=== PATIENT | male | born 1970 | race Two or more races ===

== ENCOUNTER 2021-08-27 16:03 | Inpatient (IN) | payer MEDICAID, OTHER ==
[~2021-08-27] VITALS: Ht 170.2 cm; Wt 85.4 kg
[2021-08-27] MEDS ORDERED: LABETALOL HCL 5 MG/ML 4ML SYRINGE IV ONE (16:30)
[2021-08-27] MEDS ORDERED: ASPirin 81 mg TAB PO ONE ×2 (16:30→20:30)
[2021-08-27] MEDS ORDERED: LORazepam 2MG/ML-1ML VIAL IV ONE (16:30)
[2021-08-27] MEDS ORDERED: ONDANSETRON HCL 4 MG/2 ML VIAL IV PRN (17:15)
[2021-08-27] MEDS ORDERED: MORPHINE SULFATE INJECTION 2 MG/ML SYRG IV PRN ×3 (17:15→19:30)
[2021-08-27] MEDS ORDERED: METOPROLOL SUCCINATE XL 50 MG TAB PO ONE (17:15)
[2021-08-27] MEDS ORDERED: BENAZEPRIL HCL 10 MG TAB PO ONE (17:15)
[2021-08-27] MEDS ORDERED: ATORVASTATIN 20 MG TAB PO ONE (17:15)
[2021-08-27] MEDS ORDERED: NITROGLYCERIN 0.4 MG SL TAB SL PRN (17:15)
[2021-08-27] MEDS ORDERED: DEXTROSE (50%) 50ML SYRG IV PRN (17:15)
[2021-08-27 17:23] LABS: Basophils # (auto) 0.1 10 ^3/uL (0-0.2); Eosinophils # (auto) 0.3 10 ^3/uL (0-0.8); Mean Corpuscular Hemoglobin 26.5 pg (28.0-32.0); Mean Corpuscular Hgb Conc. 33.2 g/dL (32.0-36.0); Mean Corpuscular Volume 79.7 fL (80.0-100.0); Neutrophils # (auto) 5.9 10 ^3/uL (1.6-8.6); Red Cell Distribution Width 13.7 % (11.8-14.3); White Blood Cell 8.6 10^3/uL (4.4-10.8)
[2021-08-27 17:25] LABS: Hematocrit 35.7 % (41.0-53.0); Hemoglobin 11.9 g/dL (13.5-17.5); Lymphocytes # (auto) 1.9 10 ^3/uL (0.4-5.4); Lymphocytes % (auto) 21.4 % (10.0-50.0); Monocytes # (auto) 0.6 10 ^3/uL (0-1.3); Monocytes % (auto) 6.5 % (0.0-12.0); Neutrophils % (auto) 68.1 % (37.0-80.0); Red Blood Cells 4.48 10^6/uL (4.5-5.90)
[2021-08-27 17:31] LABS: Urine Bacteria NONE SEEN /hpf (None Seen); Urine Blood Negative /uL (Negative); Urine Specific Gravity 1.008 (1.001-1.035); Urine WBC <1 /hpf (0 - 3)
[2021-08-27 17:37] LABS: INR 1.04 (0.9-1.15); Partial Thromboplastin Time 30.7 sec (23.6-33.0)
[2021-08-27 17:40] LABS: Albumin 4.1 g/dL (3.4-5.0); Calcium 9.5 mg/dL (8.5-10.1); Potassium 4.2 mmol/L (3.5-5.1)
[2021-08-27 17:44] LABS: Bilirubin, Total 0.4 mg/dL (0.2-1.0)
[2021-08-27] MEDS ORDERED: METOCLOPRAMIDE HCL 5MG/ml INJ 2ml VIAL IV PRN (19:30)
[2021-08-27] MEDS ORDERED: FAMOTIDINE (10MG/ML) 2ML VL IV ONE (19:30)
[2021-08-27] MEDS ORDERED: LORazepam 0.5 MG TAB PO PRN (19:30)
[2021-08-27] MEDS ORDERED: SODIUM CHLORIDE 0.9% 1,000 ML IV SCH (19:30)
[2021-08-27] MEDS ORDERED: NIFEdipine ER 30 MG TAB PO ONE (19:30)
[2021-08-27] MEDS ORDERED: LACTULOSE 20Gm/30ML SOLN PO PRN (19:30)
[2021-08-27] MEDS ORDERED: HYDROcodone-ACET 5/325MG TAB PO PRN (19:30)
[2021-08-27] MEDS ORDERED: DOCUSATE SOD 100 MG CAP PO PRN (19:30)
[2021-08-27] MEDS ORDERED: ACETAMINOPHEN 325 MG TAB PO PRN (19:30)
[2021-08-27] MEDS ORDERED: HYDROcodone-ACET 5/325MG TAB PO ONE (19:30)
[2021-08-27 19:59] LABS: Magnesium 2.4 mg/dL (1.6-2.6); Phosphorus 4.7 mg/dL (2.5-4.90)
[2021-08-27] MEDS ORDERED: LIDOCAINE 2%HCL (LOCAL ANESTH.) INJ 10ml MDV ONE (20:44)
[2021-08-27] MEDS: ENOXAPARIN SOD 40 MG/0.4 ML SYRINGE SC SCH (21:01)
[2021-08-27] MEDS: InsuLIN REG 1unit/0.01ml Soln (100units/ml) SC SCH (22:50)
[2021-08-27] MEDS: ATORVASTATIN 20 MG TAB PO SCH (22:50)
[2021-08-27] MEDS: ACCU-CHEK COMFORT CURVE STRIP VI SCH (22:50)
[2021-08-27] MEDS: hydrALAZINE HCL 20 MG/ML VL IV PRN (23:07)
[2021-08-28] VITALS (7 sets, daily range): BP systolic 117–174; BP diastolic 67–94
[2021-08-28] MEDS ORDERED: ENALAPRILAT 1.25 MG/ML-1ML VIAL IV ONE (00:45)
[2021-08-28 02:01] LABS: Basophils # (auto) 0 10 ^3/uL (0-0.2); Basophils % (auto) 0.5 % (0.0-2.0); Eosinophils # (auto) 0.1 10 ^3/uL (0-0.8); Eosinophils % (auto) 1.3 % (0.0-7.0); Hematocrit 36.5 % (41.0-53.0); Hemoglobin 12.3 g/dL (13.5-17.5); Lymphocytes # (auto) 2.4 10 ^3/uL (0.4-5.4); Lymphocytes % (auto) 24.5 % (10.0-50.0); Mean Corpuscular Hemoglobin 26.9 pg (28.0-32.0); Mean Corpuscular Hgb Conc. 33.7 g/dL (32.0-36.0); Mean Corpuscular Volume 79.6 fL (80.0-100.0); Monocytes # (auto) 0.6 10 ^3/uL (0-1.3); Monocytes % (auto) 6.2 % (0.0-12.0); Neutrophils # (auto) 6.7 10 ^3/uL (1.6-8.6); Neutrophils % (auto) 67.5 % (37.0-80.0); Red Blood Cells 4.59 10^6/uL (4.5-5.90); Red Cell Distribution Width 13.9 % (11.8-14.3); White Blood Cell 9.9 10^3/uL (4.4-10.8)
[2021-08-28 02:22] LABS: Albumin 4.1 g/dL (3.4-5.0); BUN/Creatinine Ratio 15.7; Calcium 9.5 mg/dL (8.5-10.1); Magnesium 2.2 mg/dL (1.6-2.6); Potassium 3.6 mmol/L (3.5-5.1)
[2021-08-28 02:25] LABS: Bilirubin, Total 0.4 mg/dL (0.2-1.0); Phosphorus 4.1 mg/dL (2.5-4.90); Total Protein 8.3 g/dL (6.4-8.2)
[2021-08-28 03:33] LABS: CRP High Sensitivity 1.28 mg/dL (< 0.3)
[2021-08-28 03:34] LABS: Thyroid Stimulating Hormone 5.6 uIU/mL (0.358-3.74)
[2021-08-28] MEDS ORDERED: METO-158 PO (05:08)
[2021-08-28] MEDS ORDERED: NIFE1TAB30 PO (05:08)
[2021-08-28] MEDS ORDERED: HYDR25TA5 PO (05:08)
[2021-08-28] MEDS ORDERED: LISI20TA28 PO (05:08)
[2021-08-28] MEDS ORDERED: ATOR40TA52 PO (05:08)
[2021-08-28] MEDS ORDERED: CLOP75TA70 PO (05:08)
[2021-08-28] MEDS: hydrALAZINE HCL 20 MG/ML VL IV PRN (05:10)
[2021-08-28 05:44] LABS: INR 1.07 (0.9-1.15); Partial Thromboplastin Time 32.4 sec (23.6-33.0)
[2021-08-28] MEDS: ACCU-CHEK COMFORT CURVE STRIP VI SCH ×4 (06:26→22:01)
[2021-08-28] MEDS: InsuLIN REG 1unit/0.01ml Soln (100units/ml) SC SCH ×4 (06:26→22:05)
[2021-08-28 08:35] LABS: Urine WBC None Seen /hpf (0 - 3)
[2021-08-28 08:53] LABS: Urine Bacteria NONE SEEN /hpf (None Seen); Urine Blood Negative /uL (Negative); Urine Specific Gravity 1.006 (1.001-1.035)
[2021-08-28] MEDS: CHOLECALCIFEROL (VITD3) 2,000 UNIT CAP/TAB PO SCH (09:01)
[2021-08-28] MEDS: ASPirin 81 mg TAB PO SCH (09:02)
[2021-08-28] MEDS: BENAZEPRIL HCL 10 MG TAB PO SCH (09:02)
[2021-08-28] MEDS: NIFEdipine ER 30 MG TAB PO SCH (09:03)
[2021-08-28] MEDS: METOPROLOL SUCCINATE XL 50 MG TAB PO SCH (09:03)
[2021-08-28 09:05] LABS: Alcohol, Urine < 3.0 mg/dL (0-10); Amphetamine Screen, Urine NEGATIVE (NEGATIVE); Barbiturate Scree,Urine NEGATIVE (NEGATIVE); Benzodiazephine Screen, Urine NEGATIVE (NEGATIVE); Cannabinoid Screen, Urine NEGATIVE (NEGATIVE); Cocaine Screen, Urine NEGATIVE (NEGATIVE); Opiate Scree,Urine NEGATIVE (NEGATIVE); Phencyclidine Screen, Urine NEGATIVE (NEGATIVE); Protein, Urine 10.9 mg/dL (0.0-11.9)
[2021-08-28] MEDS ORDERED: INFLUENZA QUAD 2021-2022 0.5 ML SYRG IM ONE (10:00)
[2021-08-28] MEDS ORDERED: FAMOTIDINE (10MG/ML) 2ML VL IV SCH (10:00)
[2021-08-28] MEDS ORDERED: PNEUMOCOCCAL VACC POLYS 25 MCG/0.5 ML VIAL IM ONE (10:00)
[2021-08-28 13:03] LABS: Free T3 2.52 pg/mL (2.3-4.2)
[2021-08-28] MEDS: ENOXAPARIN SOD 40 MG/0.4 ML SYRINGE SC SCH (17:51)
[2021-08-28] MEDS ORDERED: INSUINJ2 SC (18:28)
[2021-08-28] MEDS: ATORVASTATIN 20 MG TAB PO SCH (22:01)
[2021-08-28] MEDS ORDERED: VANCOMYCIN PER PHARMACY 0 MG IV SCH (23:00)
[2021-08-28] MEDS ORDERED: VANCOMYCIN 1GM/250ML 250 ML IV SCH (23:15)
[2021-08-29 05:00] VITALS: BP 117/76
[2021-08-29] MEDS: ACCU-CHEK COMFORT CURVE STRIP VI SCH ×2 (06:09→11:30)
[2021-08-29] MEDS: InsuLIN REG 1unit/0.01ml Soln (100units/ml) SC SCH ×2 (06:09→12:13)
[2021-08-29 07:08] LABS: Potassium 3.8 mmol/L (3.5-5.1)
[2021-08-29 07:12] LABS: BUN/Creatinine Ratio 18.6; Calcium 9.2 mg/dL (8.5-10.1)
[2021-08-29 08:41] VITALS: BP 126/75
[2021-08-29 08:43] VITALS: BP 116/52
[2021-08-29] MEDS: ASPirin 81 mg TAB PO SCH (09:37)
[2021-08-29] MEDS: BENAZEPRIL HCL 10 MG TAB PO SCH (09:38)
[2021-08-29] MEDS: CHOLECALCIFEROL (VITD3) 2,000 UNIT CAP/TAB PO SCH (09:39)
[2021-08-29] MEDS: NIFEdipine ER 30 MG TAB PO SCH (09:39)
[2021-08-29] MEDS: METOPROLOL SUCCINATE XL 50 MG TAB PO SCH (09:39)
[2021-08-29] MEDS ORDERED: LORazepam 2MG/ML-1ML VIAL IV PRN (10:00)
[2021-08-29] MEDS ORDERED: METO-6 PO (10:31)
[2021-08-29] MEDS ORDERED: LISI20TA28 PO (10:31)
[2021-08-29 11:37] VITALS: BP 126/75
[2021-08-29 13:00] VITALS: BP 143/80
[2021-08-29 15:39] LABS: Free T4 (Free Thyroxine) 1.17 ng/dL (0.89-1.76)
[2021-08-29] MEDS ORDERED: ALL100T PO (15:58)
[2021-09-03 19:03] LABS: Hepatitis A Ab IgM Negative; Hepatitis B Core IgM Negative; Hepatitis C Antibody Negative (Negative)
== END 2021-08-29 13:50 | disposition home or self-care (01) | DRG 199 ==
LOC: ER 16:03 → TELE 17:02 → EDBD 17:02 → TELE-EAST 23:52
PROVIDERS: ADMIT Hospitalist; ATTEND Internal Medicine
DX: I16.1 Hypertensive emergency (principal); E11.21 Type 2 diabetes mellitus with diabetic nephropathy; I13.10 Hypertensive heart and chronic kidney disease without heart failure, with stage 1 through stage 4 chronic kidney disease, or unspecified chronic kidney disease; E11.65 Type 2 diabetes mellitus with hyperglycemia; D64.9 Anemia, unspecified; E11.22 Type 2 diabetes mellitus with diabetic chronic kidney disease; E66.01 Morbid (severe) obesity due to excess calories; K21.9 Gastro-esophageal reflux disease without esophagitis; N18.31 Chronic kidney disease, stage 3a; K29.70 Gastritis, unspecified, without bleeding; E78.5 Hyperlipidemia, unspecified; Z68.29 Body mass index [BMI] 29.0-29.9, adult; Z79.02 Long term (current) use of antithrombotics/antiplatelets; Z79.82 Long term (current) use of aspirin; Z82.49 Family history of ischemic heart disease and other diseases of the circulatory system; Z86.73 Personal history of transient ischemic attack (TIA), and cerebral infarction without residual deficits; Z91.19 Patient's noncompliance with other medical treatment and regimen; Z79.84 Long term (current) use of oral hypoglycemic drugs
CPT/HCPCS: 36415; 70450; 71045; 76775; 80048; 80053; 80061; 80074; 80307; 81001; 82550; 82728; 82962; 83036; 83615; 83690; 83735; 83880; 84100; 84156; 84439; 84443; 84481; 84484; 84550; 85025; 85379; 85610; 85652; 85730; 86141; 87040; 87077; 87086; 87186; 93005; 96361; 96374; 96375; 99291; G0378; J1815; J2001; J3490